=== PATIENT | female | born 1965 | race Caucasian/White ===

== ENCOUNTER 2016-10-09 12:15 | Emergency (ER) | payer SELFPAY ==
[2016-10-09 12:19] VITALS: BP 133/67; PULSE 79; RESP 18; TEMP 97.2; O2SAT 97
--- NOTE | 2016-10-09 12:56 | ED PDOC ---
HPI: Trauma/Fall - HPI Time Seen by Provider: 10/09/16 12:54 Chief Complaint (Nursing): Trauma Chief Complaint (Provider): TRIP/FALL History Per: Patient (51 Y/O FEMALE HERE FOR EVALUATION OF TRIP AND FALL TODAY. PATIENT LANDED ON HANDS AND KNEES TODAY WITH NO HEAD INJURY. NOTES PAIN IN BILATERAL ARMS AND KNEES.) Past Medical History Reviewed: Historical Data, Nursing Documentation, Vital Signs Vital Signs: Last Vital Signs Temp 97.2 F L 10/09/16 12:19 Pulse 79 10/09/16 12:19 Resp 18 10/09/16 12:19 BP 133/67 10/09/16 12:19 Pulse Ox 97 10/09/16 12:57 - Medical History PMH: Asthma - Family History Family History: States: Unknown Family Hx - Home Medications Home Medications: Ambulatory Orders Medication Instructions Recorded Tramadol Hydrochloride [Tramadol] 100 mg PO Q6H PRN #30 tab 06/12/14 Ibuprofen [Motrin Tab] 800 mg PO Q6H PRN #20 tab 11/10/14 Benzonatate [Tessalon Perles] 100 mg PO TID #30 sgl 06/28/15 Ibuprofen 600 mg PO Q8 #30 tab 06/28/15 Metaxalone [Skelaxin] 800 mg PO TID #21 tablet 06/28/15 oxyCODONE/Acetaminophen [Percocet 1 tab PO QID PRN #14 tab 06/28/15 5/325 mg Tab] Ibuprofen [Motrin] 600 mg PO Q8 PRN #21 tab 10/09/16 - Allergies Allergies/Adverse Reactions: Allergies Allergy/AdvReac Type Severity Reaction Status Date / Time No Known Allergies Allergy Verified 11/10/14 13:07 Review of Systems ROS Statement: Except As Marked, All Systems Reviewed And Found Negative Musculoskeletal: Positive for: Hand Pain, Other (KNEE PAIN) Physical Exam - Reviewed Nursing Documentation Reviewed: Yes Vital Signs Reviewed: Yes - Physical Exam Appears: Positive for: Well, Non-toxic, No Acute Distress Head Exam: Positive for: ATRAUMATIC, NORMAL INSPECTION, NORMOCEPHALIC Skin: Positive for: Normal Color, Warm, DRY Eye Exam: Positive for: EOMI, Normal appearance, PERRL ENT: Positive for: Normal ENT Inspection Neck: Positive for: Normal, Painless ROM Cardiovascular/Chest: Positive for: Regular Rate, Rhythm Respiratory: Positive for: CNT, Normal Breath Sounds Gastrointestinal/Abdominal: Positive for: Normal Exam, Bowel Sounds, Soft Back: Positive for: Normal Inspection Extremity: Positive for: Normal ROM, Tenderness (ANTERIOR KNEES BILATERALLY. ABLE TO FLEX AND EXTEND WITHOUT DIFFICULTY.), Other (HAND: TENDERNESS NOTED RIGHT HAND THENAR PROMINENCE. PATIENT DESCRIBES TENDERNESS IN RIGHT WRIIST BUT NO BONY TENDERNESS ELICITED.) Neurologic/Psych: Positive for: Alert, Oriented - ECG O2 Sat by Pulse Oximetry: 97 - Progress ED Course And Treament: MOTRIN 600 MG X 1 DOSE right hand/wrist: neg for fx knee bilateral: neg for fx. reviewed with Dr. Reyes. Osteophytes noted. Disposition - Clinical Impression Clinical Impression: Arthritis, Knee contusion, Hand injury - Patient ED Disposition Is Patient to be Admitted: No - Disposition Referrals: [facility] [Outside] Disposition: Routine/Home Disposition Time: 15:21 Condition: FAIR Prescriptions: Ibuprofen [Motrin] 600 mg PO Q8 PRN #21 tab PRN Reason: Pain, Moderate (4-7) Instructions: Contusion in Adults (ED), Osteoarthritis (ED) Forms: [facility] ED School/Work Excuse Print Language: TONGAN
--- NOTE | 2016-10-09 15:54 | RAD ---
PROCEDURE: Right Wrist Radiographs. HISTORY: WRIST PAIN COMPARISON: None. FINDINGS: BONES: Normal. No fracture. JOINTS: Normal. No dislocation. SOFT TISSUES: Normal. OTHER FINDINGS: None. IMPRESSION: Normal right wrist radiographs. If symptoms persist or occult fracture suspected clinically recommend repeat radiographs in 5-10 days as most fractures should become radiographically evident this timeframe.
--- NOTE | 2016-10-09 16:00 | RAD ---
PROCEDURE: Bilateral knees dated 10/09/2016 HISTORY: Bilateral knee pain. COMPARISON: No prior study available comparison FINDINGS: Right knee findings: The current study reveals no evidence acute displaced fracture nor dislocation. The osseous structures appear intact. There appears to be some very minor medial joint space narrowing. Small marginal osteophyte formation seen arising from the lateral femoral condyle. Slight spurring tibial spines. There is also minor posterior patellar osteophyte formation and small anterior superior/anterior inferior patella enthesophyte formation. No significant joint effusion. Left knee findings: No evidence of acute displaced fracture nor dislocation. There appears to be some very minor medial joint space narrowing. Tiny medial tibial osteophyte formation and minimal spurring of the tibial spines. Small lateral femoral condyle osteophyte. Tiny posterior patellar osteophytes and small anterior inferior patella enthesophyte. Tiny anterior superior patella enthesophyte. Note is made of what could represent an incidental filled in benign cortical defect along the lateral proximal fibular metaphysis and metadiaphysis. Impression: No acute fractures. Mild DJD as described.
--- NOTE | 2016-10-09 16:06 | RAD ---
PROCEDURE: Right Hand Radiographs. HISTORY: HAND INJURY COMPARISON: None. FINDINGS: BONES: Normal. No fracture. JOINTS: Normal. No osteoarthritic changes. SOFT TISSUES: Normal. OTHER FINDINGS: None. IMPRESSION: Normal right hand radiographs. If symptoms persist or occult fracture suspected clinically recommend repeat radiographs 5-10 days as most fractures should become radiographically evident this timeframe.
== END 2016-10-09 15:29 | disposition home or self-care (01) ==
LOC: H.ER 12:15
DX: S80.00XA Contusion of unspecified knee, initial encounter (principal); S69.91XA Unspecified injury of right wrist, hand and finger(s), initial encounter; W19.XXXA Unspecified fall, initial encounter; Y92.89 Other specified places as the place of occurrence of the external cause

== ENCOUNTER 2017-08-28 10:51 | Emergency (ER) | payer OTHER ==
[2017-08-28 11:08] VITALS: BMI 40.8
[2017-08-28 11:10] VITALS: RESP 20
--- NOTE | 2017-08-28 11:45 | ED PDOC ---
HPI: General Adult Time Seen by Provider: 08/28/17 11:43 Chief Complaint (Nursing): Rib Injury Chief Complaint (Provider): chest wall pain History Per: Patient (52 y/o female here for evaluation of fall injury 1 week ago. Notes she fell on knee and outstretched hands. Had bruising to left knee pain initially but that has sinced resolved. Patient has taken advil without relief notes persistent pain with deep breathing and movement bilateral chest wall.) Past Medical History Reviewed: Historical Data, Nursing Documentation, Vital Signs Vital Signs: Last Vital Signs Temp 98.4 F 08/28/17 11:09 Pulse 71 08/28/17 11:09 Resp 20 08/28/17 11:09 BP 115/66 08/28/17 11:09 Pulse Ox 98 08/28/17 11:45 - Medical History PMH: Asthma - Family History Family History: States: Unknown Family Hx - Home Medications Home Medications: Ambulatory Orders Medication Instructions Recorded Tramadol Hydrochloride [Tramadol] 100 mg PO Q6H PRN #30 tab 06/12/14 Ibuprofen [Motrin Tab] 800 mg PO Q6H PRN #20 tab 11/10/14 Benzonatate [Tessalon Perles] 100 mg PO TID #30 sgl 06/28/15 Ibuprofen 600 mg PO Q8 #30 tab 06/28/15 Metaxalone [Skelaxin] 800 mg PO TID #21 tablet 06/28/15 oxyCODONE/Acetaminophen [Percocet 1 tab PO QID PRN #14 tab 06/28/15 5/325 mg Tab] Ibuprofen [Motrin] 600 mg PO Q8 PRN #21 tab 10/09/16 Naproxen 375 mg PO Q8 PRN #21 tablet 08/28/17 - Allergies Allergies/Adverse Reactions: Allergies Allergy/AdvReac Type Severity Reaction Status Date / Time No Known Allergies Allergy Verified 11/10/14 13:07 Review of Systems ROS Statement: Except As Marked, All Systems Reviewed And Found Negative Physical Exam - Reviewed Nursing Documentation Reviewed: Yes Vital Signs Reviewed: Yes - Physical Exam Appears: Positive for: Well, Non-toxic, No Acute Distress Head Exam: Positive for: ATRAUMATIC, NORMAL INSPECTION, NORMOCEPHALIC Skin: Positive for: Normal Color, Warm, DRY Eye Exam: Positive for: EOMI, Normal appearance, PERRL ENT: Positive for: Normal ENT Inspection Neck: Positive for: Normal, Painless ROM Cardiovascular/Chest: Positive for: Regular Rate, Rhythm Respiratory: Positive for: CNT, Normal Breath Sounds Gastrointestinal/Abdominal: Positive for: Normal Exam, Soft Back: Positive for: Normal Inspection Extremity: Positive for: Normal ROM Neurologic/Psych: Positive for: Alert, Oriented - ECG O2 Sat by Pulse Oximetry: 98 - Progress ED Course And Treament: rib series bilateral: no acute fx; no pneumothorax Incentive spirometry instructions given. Disposition - Clinical Impression Clinical Impression: Rib injury - Patient ED Disposition Is Patient to be Admitted: No - Disposition Referrals: [facility] [Outside] Disposition: Routine/Home Disposition Time: 12:35 Condition: FAIR Prescriptions: Naproxen 375 mg PO Q8 PRN #21 tablet PRN Reason: Pain, Moderate (4-7) Instructions: Rib Fracture (DC) Forms: [employer] ([place]) [employer] (I[place]ic), [facility] ED School/Work Excuse Print Language: TUNISIAN
[2017-08-28 13:11] VITALS: BP 134/78; PULSE 63; TEMP 97.9; O2SAT 99
--- NOTE | 2017-08-28 13:46 | RAD ---
PROCEDURE: Radiographs of the chest and bilateral ribs HISTORY: bilateral rib pain/s/p fall COMPARISON: None available. TECHNIQUE: Frontal radiograph of the chest and multiple oblique radiographs of the bilateral ribs were obtained. FINDINGS: RIGHT RIBS: No fracture or focal lesion visualized. LEFT RIBS: No fracture or focal lesion visualized. LUNGS: Clear. PLEURA: No pneumothorax or pleural fluid. CARDIOVASCULAR: Normal sized heart. No pulmonary vascular congestion. OTHER FINDINGS: None. IMPRESSION: Unremarkable radiographs of the chest and bilateral ribs. No rib fracture.
== END 2017-08-28 13:05 | disposition home or self-care (01) ==
LOC: H.ER 10:51
DX: S29.9XXA Unspecified injury of thorax, initial encounter (principal); W19.XXXA Unspecified fall, initial encounter

== ENCOUNTER 2018-09-10 10:19 | Emergency (ER) | payer OTHER ==
[2018-09-10 10:30] VITALS: RESP 16
[2018-09-10 10:31] VITALS: BMI 41.3
[2018-09-10] MEDS ORDERED: Naproxen 500 MG TAB PO STA (11:25)
[2018-09-10] MEDS ORDERED: Naproxen 500 MG TAB PO ONE (12:10)
[2018-09-10 12:13] LABS: ALB/GLOB RATIO 1.2 (1.0-2.1); ALBUMIN 4.1 g/dL (3.5-5.0); ALT/SGPT 47 U/L (9-52); AST/SGOT 30 U/L (14-36); BLOOD UREA NITROGEN 19 mg/dl (7-17); CALCIUM 9.3 mg/dL (8.4-10.2); GFR NON-AFRICAN AMERICAN > 60
[2018-09-10 12:17] LABS: BASO # 0.1 K/uL (0.0-0.2); BASO % 0.9 % (0.0-2.0); EOS # 0.1 K/uL (0.0-0.7); EOS % 1.5 % (0.0-4.0); HEMOGLOBIN 13.6 g/dL (12.0-16.0); LYMPH % 24.2 % (20.0-40.0); MEAN CELL VOLUME 82.2 fl (81.0-99.0); MEAN CORPUSCULAR HEMOGLOBIN 27.3 pg (27.0-31.0); MEAN CORPUSCULAR HGB CONC 33.2 g/dL (33.0-37.0); MEAN PLATELET VOLUME 9.7 fl (7.2-11.7); MONO # 0.5 K/uL (0.0-0.8); MONO % 6.2 % (0.0-10.0); NEUT # 5.7 K/uL (1.8-7.0); NEUT % 67.2 % (50.0-75.0); RBC 4.99 Mil/uL (3.80-5.20); RED CELL DISTRIBUTION WIDTH 15.9 % (11.5-14.5); WHITE BLOOD COUNT 8.5 K/uL (4.8-10.8)
[2018-09-10 12:59] LABS: SQUAMOUS EPITHIAL 5 /hpf (0-5); URINE BILIRUBIN NEGATIVE (NEGATIVE); URINE BLOOD NEGATIVE (NEGATIVE); URINE CLARITY SLIGHTY-CLOUDY (Clear); URINE COLOR YELLOW (YELLOW); URINE GLUCOSE (UA) NEG (NEGATIVE); URINE LEUKOCYTE ESTERASE NEG Leu/uL (Negative); URINE PROTEIN NEGATIVE (NEGATIVE); URINE UROBILINOGEN 0.2-1.0 mg/dL (0.2-1.0)
--- NOTE | 2018-09-10 13:17 | ED PDOC ---
HPI: Abdomen Time Seen by Provider: 09/10/18 10:58 Chief Complaint (Nursing): Abdominal Pain Chief Complaint (Provider): Abdominal Pain History Per: Patient Onset/Duration Of Symptoms: Days Current Symptoms Are (Timing): Still Present Location Of Pain/Discomfort: RLQ, LLQ Quality Of Discomfort: "Pain" Associated Symptoms: Urinary Symptoms. denies: Nausea, Vomiting, Diarrhea Additional Complaint(s): 53 year old female with no significant past medical history presents to the ED with left lower abdomen pain. Two weeks ago, she woke up in the morning to pee, but her son was in the bathroom so she ended up peeing herself. Since then she has been having worsening lower abdominal pain. She denies pain with urination, but has increased frequency. Patient denies nausea, vomiting and diarrhea. PMD: Greg Kwan Past Medical History Reviewed: Historical Data, Nursing Documentation, Vital Signs Vital Signs: Last Vital Signs Temp 98.5 F 09/10/18 10:30 Pulse 63 09/10/18 10:30 Resp 16 09/10/18 10:30 BP 115/70 09/10/18 10:30 Pulse Ox 99 09/10/18 10:30 Primary Care Provider: Greg Kwan - Medical History PMH: Asthma - Family History Family History: States: Unknown Family Hx - Home Medications Home Medications: Ambulatory Orders Medication Instructions Recorded Tramadol Hydrochloride [Tramadol] 100 mg PO Q6H PRN #30 tab 06/12/14 Ibuprofen [Motrin Tab] 800 mg PO Q6H PRN #20 tab 11/10/14 Benzonatate [Tessalon Perles] 100 mg PO TID #30 sgl 06/28/15 Ibuprofen 600 mg PO Q8 #30 tab 06/28/15 Metaxalone [Skelaxin] 800 mg PO TID #21 tablet 06/28/15 oxyCODONE/Acetaminophen [Percocet 1 tab PO QID PRN #14 tab 06/28/15 5/325 mg Tab] Ibuprofen [Motrin] 600 mg PO Q8 PRN #21 tab 10/09/16 Naproxen 375 mg PO Q8 PRN #21 tablet 08/28/17 Ibuprofen [Motrin Tab] 800 mg PO Q6 #28 tab 09/10/18 - Allergies Allergies/Adverse Reactions: Allergies Allergy/AdvReac Type Severity Reaction Status Date / Time No Known Allergies Allergy Verified 11/10/14 13:07 Review of Systems ROS Statement: Except As Marked, All Systems Reviewed And Found Negative Gastrointestinal: Positive for: Abdominal Pain (lower). Negative for: Nausea, Vomiting, Diarrhea Genitourinary Female: Positive for: Frequency (increased). Negative for: Dysuria Physical Exam - Reviewed Nursing Documentation Reviewed: Yes Vital Signs Reviewed: Yes - Physical Exam Appears: Positive for: Non-toxic, No Acute Distress Head Exam: Positive for: ATRAUMATIC, NORMOCEPHALIC Skin: Positive for: Normal Color, Warm, Dry Eye Exam: Positive for: Normal appearance, EOMI, PERRL Cardiovascular/Chest: Positive for: Regular Rate, Rhythm. Negative for: Murmur Respiratory: Positive for: Normal Breath Sounds. Negative for: Respiratory Distress Gastrointestinal/Abdominal: Positive for: Normal Exam, Soft. Negative for: Tenderness Extremity: Positive for: Normal ROM (upper and lower). Negative for: Pedal Edema, Deformity Neurological/Psych: Positive for: Awake, Alert, Oriented (x3) - Laboratory Results Result Diagrams: 09/10/18 12:00 09/10/18 12:00 Lab Results: Total Bilirubin 0.7 mg/dl (0.2-1.3) 09/10/18 12:00 AST 30 U/L (14-36) 09/10/18 12:00 ALT 47 U/L (9-52) 09/10/18 12:00 Alkaline Phosphatase 145 U/L (38-126) H 09/10/18 12:00 Total Protein 7.5 G/DL (6.3-8.2) 09/10/18 12:00 Albumin 4.1 g/dL (3.5-5.0) 09/10/18 12:00 Globulin 3.3 gm/dL (2.2-3.9) 09/10/18 12:00 Albumin/Globulin Ratio 1.2 (1.0-2.1) 09/10/18 12:00 Urine Color Yellow (YELLOW) 09/10/18 12:13 Urine Clarity Slighty-cloudy (Clear) 09/10/18 12:13 Urine pH 7.0 (5.0-8.0) 09/10/18 12:13 Ur Specific [place] 1.020 (1.003-1.030) 09/10/18 12:13 Urine Protein Negative mg/dL (NEGATIVE) 09/10/18 12:13 Urine Glucose (UA) Neg mg/dL (NEGATIVE) 09/10/18 12:13 Urine Ketones Negative mg/dL (NEGATIVE) 09/10/18 12:13 Urine Blood Negative (NEGATIVE) 09/10/18 12:13 Urine Nitrate Negative (NEGATIVE) 09/10/18 12:13 Urine Bilirubin Negative (NEGATIVE) 09/10/18 12:13 Urine Urobilinogen 0.2-1.0 mg/dL (0.2-1.0) 09/10/18 12:13 Ur Leukocyte Esterase Neg [place]/uL (Negative) 09/10/18 12:13 Urine RBC (Auto) 6 /hpf (0-3) H 09/10/18 12:13 Urine Microscopic WBC 4 /hpf (0-5) 09/10/18 12:13 Ur Squamous Epith Cells 5 /hpf (0-5) 09/10/18 12:13 - ECG O2 Sat by Pulse Oximetry: 99 (RA) Pulse Ox Interpretation: Normal Medical Decision Making Medical Decision Making: Time: 1125 Plan: --basic labs --Naproxen --Reglan --UA Labs and UA unremarkable. Pt to be discharged home and will follow up with PMD. Abd pain improved. -------- --------- Scribe Attestation: Documented by Autumn Williamson, acting as a scribe for Angeles Roach MD. Provider Scribe Attestation: All medical record entries made by the Scribe were at my direction and personally dictated by me. I have reviewed the chart and agree that the record accurately reflects my personal performance of the history, physical exam, medical decision making, and the department course for this patient. I have also personally directed, reviewed, and agree with the discharge instructions and dis position. Disposition - Clinical Impression Clinical Impression: Abdominal pain - Disposition Disposition: Routine/Home Disposition Time: 14:56 Condition: IMPROVED Additional Instructions: Follow up with primary medical doctor for further workup. Take Motrin as needed for pain. Prescriptions: Ibuprofen [Motrin Tab] 800 mg PO Q6 #28 tab Instructions: Acute Abdomen (Belly Pain), Adult (DC) Forms: [employer] (Pashto), [employer] (Russian), [facility] ED School/Work Excuse Print Language: SERBIAN
[2018-09-10 15:03] VITALS: BP 120/71; PULSE 69; TEMP 98
[2018-09-12 14:36] VITALS: O2SAT 99
== END 2018-09-10 15:03 | disposition home or self-care (01) ==
LOC: H.ER 10:19
DX: R10.9 Unspecified abdominal pain (principal); J45.909 Unspecified asthma, uncomplicated